=== PATIENT | male | born 2000 | race Caucasian/White ===

== ENCOUNTER → 2023-03-15 | Day surgery (SDC) | payer OTHER ==
[~2023-03-15] MED LIST: EPINEPHrine 1 mg/ml MDV (1ml Charge) ONE; Gadobenate 529 MG/ML (10ML SDV) ONE; Iopamidol 300 61% 100 ML VIAL FS ONE; Lidocaine 1% PF 5 ML VIAL ONE
== END ==
LOC: CSHRAD 08:47
PROVIDERS: ATTEND Orthopaedic Surgery
PROC: BP3LYZZ Magnetic Resonance Imaging (MRI) of Right Wrist using Other Contrast (ICD-10-PCS; principal; 2023-03-15)
DX: M24.132 Other articular cartilage disorders, left wrist (principal)
CPT/HCPCS: 25246; A9577; J0171; J7050; Q9967